=== PATIENT | female | born 1960 | race Hispanic/Latino ===

== ENCOUNTER 2016-10-14 18:04 | Emergency (ER) | payer OTHER ==
[~2016-10-14] VITALS: Ht 157.5 cm; Wt 90.9 kg
[~2016-10-14 18:04] MED LIST: ALBU8.5H4 IH; COLE1TAB PO; GABA-502 PO; HYDR12.5 PO; IBUP-1827 PO; LOSA25TA21 PO; METF1000 PO; METO25TA99 PO; MONT10TA23 PO; OMEP-113 PO; PARO20TA5 PO; TRAZ-115 PO
[2016-10-14 18:09] VITALS: BP 150/85; PULSE 99; RESP 12; O2SAT 100
[2016-10-14 20:00] VITALS: BP 143/74; PULSE 89; RESP 20; O2SAT 98
--- NOTE | 2016-10-14 20:31 | ED.REPORT ---
HPI-URI / Cough / Cold Date of Service Oct 14, 2016 ED Provider: Beatriz Ash MD This is a 56 year old female with a history of DM, HTN, and hyperlipidemia presenting to the emergency department complaining of productive cough that began 2 weeks ago and worsened yesterday. Associated symptoms include fever of 100.1 F, shortness of breath, nausea, malaise. Denies chest pain, vomiting, lower extremity swelling, abdominal pain, constipation, or diarrhea. Nursing Notes Stated Complaint: COUGH/SICK Chief Complaint: FLU/Cold Symptoms Nursing Notes Reviewed: Yes Allergies: Coded Allergies: No Known Allergies (Verified Allergy, Unknown, 11/02/15) Scheduled Colestipol HCl (Colestid) 1 Gm Tablet 1 TAB PO BID Hydrochlorothiazide (Hydrochlorothiazide) 12.5 Mg Capsule 12.5 MG PO DAILY Losartan Potassium (Losartan Potassium) 25 Mg Tablet 25 MG PO DAILY Metformin (Glucophage) 1,000 Mg Tablet 1,000 MG PO DAILY Metoprolol Succinate ER (Metoprolol Succinate ER) 25 Mg Tab.er.24h 25 MG PO DAILY Montelukast (Montelukast) 10 Mg Tablet 10 MG PO DAILY Omeprazole Magnesium (Omeprazole) 20 Mg Capsule.dr 20 MG PO DAILY Paroxetine (Paroxetine) 20 Mg Tablet 20 MG PO HS Trazodone (Trazodone) 50 Mg Tablet 100 MG PO HS Scheduled PRN Albuterol HFA (Albuterol HFA) 8.5 Gm Hfa.aer.ad 1 PUFF IH Q4 PRN PRN For Cough Benzonatate (Tessalon Perle) 100 Mg Capsule 100 MG PO TID PRN PRN For Cough Gabapentin (Gabapentin) 300 Mg Capsule 300 MG PO DAILY PRN PRN For Pain Ibuprofen (Ibuprofen) 600 Mg Tablet 600 MG PO QID PRN PRN For Pain General Time Seen by MD: 20:30 Chief Complaint Cough, productive... Hx Obtained From: Patient Arrived By: Walk-in Onset Occurred: Yesterday Symptom Duration: Since onset Severity: Current: No pain currently Pertinent Negative: Pt denies other symptoms Recent Healthcare: No recent doctor visit, No recent hospitalization Similar Sx Previous: No Past Medical History Past Medical History UTI Reports: Diabetes mellitus, Hyperlipidemia, Hypertension Past Surgical History none reported Family History non-contributory Smoking History Former Smoker Ambulatory Status Independent Review of Systems Constitutional: Reports: Chills, Fever, Malaise Respiratory: Reports: Prod cough, white, Shortness of breath GI: Reports: Nausea, Denies: Abdominal pain, Constipation, Diarrhea, Vomiting Complete sys rev & neg: except as marked. Physical Exam Initial Vital Signs Vital Signs (First) Date Time Temp Pulse Resp B/P Pulse Ox O2 Delivery O2 Flow Rate FiO2 10/14/16 18:09 36.5 99 12 150/85 100 Room Air Initial VS: Reviewed Head / Eyes: Atraumatic, Normocephalic, PERRL Neck: Supple, Non-tender, Full range of motion Cardiovascular: Regular rate & rhythm, Heart sounds normal, Intact distal pulses Abdomen / GI: Soft, Non-tender, No guarding, No rebound, No distention Extremities: Vascular intact, Neuro intact, No swelling, No tenderness Skin: Warm, Dry, No cyanosis Neurologic: Alert, Oriented, Nonfocal Psychiatric: Mood/affect normal, Behavior normal, Normal thought content General/Constitutional: Awake, Alert ENT: Airway patent, Mucous membranes moist, Pharynx NL, Tympanic membs NL, Ext aud canal NL, Nose exam NL, No sinus tenderness Respiratory / Chest: Breath sounds NL, Breath sounds = bilat, No respiratory distress, No rales, No rhonchi, No wheezing Interpretation & Diagnostics Lab Results Interpretation Test 10/14/16 19:35 Hold Purple Top Tube Received (Received) Hold Blue Top Tube Received (Received) Hold [place] Top Tube Received (Received) X-Ray Chest Interpretation Chest Xray Interpretation: IMPRESSION: No acute cardiopulmonary findings. Dictated by: Amy Kuo M.D. on 10/14/2016 at 21:17 Approved by: Amy Kuo M.D. on 10/14/2016 at 21:18 Re-Eval/Medical Decision Med Decision/Clinical Course 56-year-old female with past medical history of diabetes here with cough for the last 2 weeks which is productive of mucus. Differential diagnosis includes but is not limited to viral versus bacterial upper respiratory infection versus viral pneumonia versus influenza. At this time, given the patient's symptoms have lasted for 2 weeks, she is afebrile, and well appearing, I do not feel influenza swab is necessary. Chest x-ray was normal. Patient was given Tylenol in the emergency department and felt much better. She was discharged with a prescription for Tessalon Perles and advised to follow-up with her primary care physician. She is aware and amenable to discharge. Counseled Regarding: Diagnosis, Lab results, Need for follow-up Discharge & Departure Impression: Primary Impression: Cough Disposition: Home Discharge Condition All VS Reviewed: Yes Condition: Stable Patient Instructions: Chronic Cough (ED) Additional Instructions: Use Tessalon pearls for the cough. Follow-up with your primary care provider as scheduled. Return to the emergency department for any new or worsening symptoms Referrals: Dyllan Suarez MD (PCP) Scribe Attestation Portions of this note were transcribed by Markos Saldana. I, Dr. Ash personally performed the history, physical exam and medical decision-making; I reviewed and confirmed the accuracy of the information in the transcribed note. Signed by: judit Meredith. 10/14/2016, 23:00. Beatriz Ash MD Oct 14, 2016 20:31 MARKOS SALDANA Oct 14, 2016 20:33
[2016-10-14 20:46] VITALS: BP 125/85; PULSE 95; RESP 18; O2SAT 98
--- NOTE | 2016-10-14 21:19 | DRSVH ---
PROCEDURE: X-RAY CHEST, TWO VIEWS ([id number]) INDICATIONS: ciugh TECHNIQUE: 2 views of the chest were acquired. COMPARISON: None. FINDINGS: Surgical changes and devices: None. Lungs and pleura: No pleural effusions or pneumothorax. Lungs are clear. Mediastinum: Mediastinal contours are normal. Heart size is normal. Bones and chest wall: No suspicious bony abnormalities. Soft tissues appear unremarkable. IMPRESSION: No acute cardiopulmonary findings. Dictated by: Amy Kuo M.D. on 10/14/2016 at 21:17 Approved by: Amy Kuo M.D. on 10/14/2016 at 21:18
[2016-10-14] MEDS ORDERED: BENZ-12 PO (21:48)
[2016-10-14 22:06] VITALS: BP 123/67; PULSE 86; RESP 16
== END 2016-10-14 22:11 | disposition home or self-care (01) ==
LOC: SED 18:04
DX: R05 Cough (principal); I10 Essential (primary) hypertension; E11.9 Type 2 diabetes mellitus without complications; Z87.891 Personal history of nicotine dependence; Z79.84 Long term (current) use of oral hypoglycemic drugs